=== PATIENT | male | born 2000 | race Asian ===

== ENCOUNTER 2021-04-21 17:28 | Emergency (ER) | payer SELFPAY ==
[2021-04-21] MEDS ORDERED: Omeprazole 20 MG Cap.CR ONE (17:45)
[2021-04-21] MEDS: Sodium Chloride 0.9% 1,000 ML IV ONE (17:55)
[2021-04-21] MEDS: Ondansetron 4 MG/2 ML SDV IVPUSH ONE (18:00)
[2021-04-21] MEDS: Ondansetron 4 MG/2 ML SDV ONE (18:11)
--- NOTE | 2021-04-21 18:54 | EDM.PDOC ---
ED HPI GENERAL MEDICAL PROBLEM - General Chief Complaint: Gastrointestinal Problem Stated Complaint: NAUSEA AND VOMITING Time Seen by Provider: 04/21/21 17:43 - History of Present Illness INITIAL COMMENTS - FREE TEXT/NARRATIVE: Pt comes to the ER with C/O Nausea and vomiting since yesterday morning. No Abd pain, fever, cough, SOB. He did have a couple episodes of diarrhea. He takes no prescription meds, and has otherwise been healthy. - Related Data Allergies Allergy/AdvReac Type Severity Reaction Status Date / Time No Known Allergies Allergy Verified 04/21/21 18:14 Home Meds: Home Meds NK [No Known Home Meds] 04/21/21 [History] Past Medical History HEENT History: Reports: None Cardiovascular History: Reports: None Respiratory History: Reports: None Gastrointestinal History: Reports: None Genitourinary History: Reports: None Musculoskeletal History: Reports: None Neurological History: Reports: None Psychiatric History: Reports: None Endocrine/Metabolic History: Reports: None Hematologic History: Reports: None Immunologic History: Reports: None Oncologic (Cancer) History: Reports: None Dermatologic History: Reports: None - Infectious Disease History Infectious Disease History: Reports: None - Past Surgical History Head Surgeries/Procedures: Reports: None HEENT Surgical History: Reports: None Cardiovascular Surgical History: Reports: None Respiratory Surgical History: Reports: None GI Surgical History: Reports: None Male Surgical History: Reports: None Endocrine Surgical History: Reports: None Neurological Surgical History: Reports: None Musculoskeletal Surgical History: Reports: None Dermatological Surgical History: Reports: None Social & Family History - Tobacco Use Tobacco Use Status *Q: Current Every Day Tobacco User Years of Tobacco use: 4 Packs/Tins Daily: 1 Used Tobacco, but Quit: No Tobacco Use Comment: Changes cartridge on vape every 3 days Second Hand Smoke Exposure: No - Recreational Drug Use Recreational Drug Use: Yes Recreational Drug Type: Reports: Marijuana/Hashish Recreational Drug Use Frequency: Daily ED ROS GENERAL - Review of Systems Review Of Systems: Comprehensive ROS is negative, except as noted in HPI. GI/Abdominal: Reports: Vomiting ED EXAM, GI/ABD - Physical Exam Exam: See Below GI/Abdominal Exam: Other (mild tenderness generalized with ligh palpation.) Course - Orders/Labs/Meds Orders: Active Orders 24 hr Category Date Time Status H.PYLORI ANTIGEN, STOOL [OP] Stat Lab 04/21/21 18:37 Ordered Labs: Laboratory Tests 04/21/21 04/21/21 Range/Units 17:47 17:47 WBC 14.2 H (4.0-11.0) K/uL RBC 5.66 (4.50-6.50) M/uL Hgb 16.3 (13.0-18.0) g/dL Hct 48.9 (40.0-54.0) % MCV 86 (76-96) fL MCH 28.8 (27.0-32.0) pg MCHC 33.3 (31.0-35.0) g/dL RDW 13.3 (11.0-16.0) % Plt Count 196 (150-400) K/uL MPV 11.6 H (6.0-10.0) fL Neut % (Auto) 76.0 H (45.0-70.0) % Lymph % (Auto) 13.0 L (20.0-40.0) % Sabine % (Auto) 10.4 H (3.0-10.0) % Eos % (Auto) 0.3 L (1.0-5.0) % Baso % (Auto) 0.3 (0.0-0.5) % Neut # (Auto) 10.83 H (2.00-7.50) K/uL Lymph # (Auto) 1.85 (1.50-4.00) K/uL Sabine # (Auto) 1.48 H (0.20-0.80) K/uL Eos # (Auto) 0.04 (0.04-0.40) K/uL Baso # (Auto) 0.04 (0.02-0.10) K/uL Sodium 142 (136-145) mmol/L Potassium 3.9 (3.5-5.1) mmol/L Chloride 102 (98-107) mmol/L Carbon Dioxide 27.8 (21.0-32.0) mmol/L Anion Gap 16.1 H (5.0-15.0) mmol/L BUN 22 (8-26) mg/dL Creatinine 1.19 (0.70-1.30) mg/dL Est Cr Clr Drug Dosing TNP Estimated GFR (MDRD) > 60 (>60) MLS/MIN BUN/Creatinine Ratio 18.5 (6-25) Glucose 118 H (74-100) mg/dL Calcium 9.8 (8.5-10.1) mg/dL Total Bilirubin 1.0 (0.0-1.0) mg/dL AST 22 (15-37) U/L ALT 23 (12-78) U/L Alkaline Phosphatase 74 (46-116) U/L Total Protein 8.9 H (6.4-8.2) g/dL Albumin 4.7 (3.4-5.0) g/dL Globulin 4.2 (2.2-4.2) g/dL Albumin/Globulin Ratio 1.1 (0.8-2.0) Meds: Medications Discontinued Medications Generic Name Dose Route Start Last Admin Trade Name Freq PRN Reason Stop Dose Admin Sodium Chloride 1,000 mls @ 999 mls/hr 04/21/21 17:47 04/21/21 17:55 Normal Saline IV 04/21/21 18:47 999 mls/hr .BOLUS ONE Administration Ondansetron HCl 4 mg 04/21/21 17:48 04/21/21 18:00 Ondansetron 4 Mg/2 Ml Sdv IVPUSH 04/21/21 17:49 4 mg ONETIME ONE Administration Ondansetron HCl Confirm 04/21/21 18:07 04/21/21 18:11 Ondansetron 4 Mg/2 Ml Sdv Administered 04/21/21 18:08 Not Given Dose 4 mg .ROUTE .STK-MED ONE - Re-Assessments/Exams Free Text/Narrative Re-Assessment/Exam: 04/21/21 18:51 Labs reveal an elevated WBC, other labs are ok. He was given 1 liter N.S. and Zofran. He has not has any emesis since being here. He will be sent home with Flagyl and Prise. Oral rehydration discussed. He could not leave a stool sample for H Pylori testing. He was given a slip for being off work 2 days. Re check in the clinic as needed over the next few days. Departure - Departure Time of Disposition: 18:50 Disposition: Home, Self-Care 01 Clinical Impression: Gastritis Qualifiers: Gastritis type: unspecified gastritis Chronicity: acute Gastritis bleeding: without bleeding Qualified Code(s): K29.00 - Acute gastritis without bleeding - Discharge Information *PRESCRIPTION DRUG MONITORING PROGRAM REVIEWED*: No *COPY OF PRESCRIPTION DRUG MONITORING REPORT IN PATIENT KULWANT: No Referrals: PCP,None [Primary Care Provider] - Additional Instructions: Take meds as directed. Increase fluids with small frequent drinks. Activity as tolerated. Follow up in the clinic as needed over the next few days. Sepsis Event Note (ED) - Evaluation Sepsis Screening Result: No Definite Risk - My Orders Last 24 Hours: My Active Orders 04/21/21 18:37 H.PYLORI ANTIGEN, STOOL [OP] Stat - Assessment/Plan Last 24 Hours: My Active Orders 04/21/21 18:37 H.PYLORI ANTIGEN, STOOL [OP] Stat
== END 2021-04-21 18:59 | disposition home or self-care (01) ==
LOC: LB.ED 17:28
DX: K29.00 Acute gastritis without bleeding (principal); Z72.0 Tobacco use
CPT/HCPCS: 36415; 80053; 85025; 96374; 99284-25; A9270-GY; J2405; J7030